=== PATIENT | male | born 1970 | race Caucasian/White ===

== ENCOUNTER 2024-10-26 08:02 | Inpatient (IN) | payer BC ==
[2024-10-26] MEDS ORDERED: SODIUM CHLORIDE 1,000 ML IV SCH (08:15)
[2024-10-26] MEDS ORDERED: LABETALOL HCL 20 MG/4 ML VIAL IVPUSH ONE (08:37)
[2024-10-26] MEDS: ONDANSETRON 4 MG/2 ML VIAL IVPUSH ONE ×2 (09:34→12:25)
[2024-10-26] MEDS: MECLIZINE HCL 25 MG TABLET (FP) PO ONE (09:34)
[2024-10-26] MEDS: ACETAMINOPHEN 1000 MG/100 ML BAG IVPB ONE ×2 (09:45→15:15)
[2024-10-26] MEDS ORDERED: ACETAMINOPHEN INJECTION 100 ML ONE (09:56)
[2024-10-26 10:58] LABS: ABSOLUTE IMMATURE GRANULOCYTES 0.03 x10^3/uL (0.0-0.031); BASOPHILS # 0.05 x10^3/uL (0.01-0.08); EOSINOPHIL % 0.9 % (0.8-7.0); EOSINOPHILS # 0.10 x10^3/uL (0.04-0.54); MCHC 34.4 g/dl (32.3-36.5); MEAN CELL VOLUME 94.8 fl (79.0-92.2); MEAN PLT VOLUME 9.8 fl (9.4-12.4); MONOCYTE # 0.72 x10^3/uL (0.30-0.82); MONOCYTE % 6.7 % (5.3-12.2); RDW 12.3 % (12.2-16.1)
[2024-10-26 11:05] LABS: INR 1.06 (0.83-1.09); PROTHROMBIN TIME (PATIENT) 11.7 SEC (9.7-13.0)
[2024-10-26 11:08] LABS: ACTIVATED PTT 24.2 SECONDS (25.2-36.5)
[2024-10-26 11:23] LABS: CO2 24.0 mmol/L (21-32)
[2024-10-26 11:25] LABS: GLUCOSE,RANDOM 161.0 mg/dL (74-106)
[2024-10-26 11:27] LABS: CREATININE 1.1 mg/dL (0.55-1.3); SGOT/AST 52.0 U/L (15-37); SGPT/ALT 98.0 U/L (13-61)
[2024-10-26 11:28] LABS: TOT PROT 7.4 g/dl (6.4-8.2)
[2024-10-26 11:30] LABS: LDL CHOLESTEROL (ONLY SJRH) 136.0 mg/dL (5-100)
[2024-10-26 11:31] LABS: ALK PHOS 69.0 U/L (45-117)
[2024-10-26] MEDS ORDERED: LABETALOL HCL 20 MG/4 ML VIAL ONE (11:32)
[2024-10-26] MEDS: LABETALOL HCL 20 MG/4 ML VIAL IVPUSH ONE (11:45)
[2024-10-26] MEDS ORDERED: LABETALOL HCL 20 MG/4 ML VIAL IVPUSH PRN (12:17)
[2024-10-26] MEDS ORDERED: ONDANSETRON 4 MG/2 ML VIAL ONE (12:20)
[2024-10-26] MEDS ORDERED: ASPIRIN 81 MG CHEWABLE TABLETS PO SCH (13:00)
[2024-10-26] MEDS: ONDANSETRON 4 MG/2 ML VIAL IVPUSH PRN (16:16)
[2024-10-26] MEDS: ACETAMINOPHEN 325 MG TABLET (FP) PO PRN (21:05)
[2024-10-26] MEDS ORDERED: MUPIROCIN 2% TOPICAL OINTMENT FOR DECOLONIZATION NS SCH (22:00)
[2024-10-26] MEDS: CHLORHEXIDINE GLUCONATE 4% CLEANSER FOR DECOLONIZATION TP SCH (22:34)
[2024-10-26] MEDS: MUPIROCIN 2% TOPICAL OINTMENT FOR DECOLONIZATION NS SCH (22:34)
[2024-10-26] MEDS: ATORVASTATIN CA 40 MG TABLET (FP) PO SCH (22:36)
[2024-10-27 07:33] LABS: ABSOLUTE IMMATURE GRANULOCYTES 0.07 x10^3/uL (0.0-0.031); BASOPHILS # 0.04 x10^3/uL (0.01-0.08); EOSINOPHIL % 0.9 % (0.8-7.0); EOSINOPHILS # 0.12 x10^3/uL (0.04-0.54); MCHC 34.3 g/dl (32.3-36.5); MEAN CELL VOLUME 96.0 fl (79.0-92.2); MEAN PLT VOLUME 10.2 fl (9.4-12.4); MONOCYTE # 1.28 x10^3/uL (0.30-0.82); MONOCYTE % 9.4 % (5.3-12.2); RDW 12.6 % (12.2-16.1)
[2024-10-27 08:18] LABS: CO2 26.0 mmol/L (21-32); GLUCOSE,RANDOM 105.0 mg/dL (74-106)
[2024-10-27 08:21] LABS: CREATININE 0.9 mg/dL (0.55-1.3); SGOT/AST 36.0 U/L (15-37); SGPT/ALT 84.0 U/L (13-61)
[2024-10-27 08:22] LABS: ALK PHOS 56.0 U/L (45-117); TOT PROT 6.6 g/dl (6.4-8.2)
[2024-10-27] MEDS: LOSARTAN POTASSIUM 50 MG TABLET PO SCH (09:04)
[2024-10-27] MEDS: ASPIRIN 81 MG CHEWABLE TABLETS PO SCH (09:04)
[2024-10-27] MEDS: MECLIZINE HCL 12.5 MG TABLET PO PRN (09:06)
[2024-10-28 06:33] LABS: ABSOLUTE IMMATURE GRANULOCYTES 0.04 x10^3/uL (0.0-0.031); BASOPHILS # 0.08 x10^3/uL (0.01-0.08); EOSINOPHIL % 2.6 % (0.8-7.0); EOSINOPHILS # 0.24 x10^3/uL (0.04-0.54); MCHC 33.4 g/dl (32.3-36.5); MEAN CELL VOLUME 97.1 fl (79.0-92.2); MEAN PLT VOLUME 9.8 fl (9.4-12.4); MONOCYTE # 0.96 x10^3/uL (0.30-0.82); MONOCYTE % 10.4 % (5.3-12.2); RDW 12.8 % (12.2-16.1)
[2024-10-28 07:06] LABS: CO2 27.0 mmol/L (21-32); GLUCOSE,RANDOM 100.0 mg/dL (74-106)
[2024-10-28 07:09] LABS: CREATININE 1.1 mg/dL (0.55-1.3); SGOT/AST 37.0 U/L (15-37); SGPT/ALT 79.0 U/L (13-61)
[2024-10-28 07:11] LABS: TOT PROT 6.8 g/dl (6.4-8.2)
[2024-10-28 07:12] LABS: ALK PHOS 63.0 U/L (45-117)
[2024-10-28] MEDS: ARTIFICIAL TEARS OPHTHALMIC DROPS OU PRN (09:21)
[2024-10-28] MEDS: LACTATED RINGERS SOLUTION 1,000 ML/1,000 ML INFUS.BAG IV STA (09:23)
[2024-10-28] MEDS: MECLIZINE HCL 12.5 MG TABLET PO SCH (14:57)
[2024-10-29 06:26] LABS: ABSOLUTE IMMATURE GRANULOCYTES 0.04 x10^3/uL (0.0-0.031); BASOPHILS # 0.08 x10^3/uL (0.01-0.08); EOSINOPHIL % 4.0 % (0.8-7.0); EOSINOPHILS # 0.38 x10^3/uL (0.04-0.54); MCHC 33.8 g/dl (32.3-36.5); MEAN CELL VOLUME 96.0 fl (79.0-92.2); MEAN PLT VOLUME 9.6 fl (9.4-12.4); MONOCYTE # 0.96 x10^3/uL (0.30-0.82); MONOCYTE % 10.2 % (5.3-12.2); RDW 12.7 % (12.2-16.1)
[2024-10-29 06:48] LABS: CO2 26.0 mmol/L (21-32); GLUCOSE,RANDOM 99.0 mg/dL (74-106)
[2024-10-29 06:51] LABS: CREATININE 1.1 mg/dL (0.55-1.3); SGOT/AST 54.0 U/L (15-37); SGPT/ALT 102.0 U/L (13-61)
[2024-10-29 06:53] LABS: TOT PROT 6.8 g/dl (6.4-8.2)
[2024-10-29 06:54] LABS: ALK PHOS 68.0 U/L (45-117)
[2024-10-29] MEDS ORDERED: LACTATED RINGERS SOLUTION 1,000 ML/1,000 ML INFUS.BAG IV SCH (11:45)
[2024-10-29] MEDS ORDERED: ONDANSETRON 4 MG/2 ML VIAL IVPUSH PRN (15:37)
[2024-10-29] MEDS ORDERED: ACETAMINOPHEN 325 MG TABLET (FP) PO PRN (15:37)
[2024-10-29] MEDS ORDERED: ARTIFICIAL TEARS OPHTHALMIC DROPS OU PRN (15:37)
[2024-10-29] MEDS: POLYETHYLENE GLYCOL (HEALTHYLAX) 3350 17 GM PACKET PO SCH (16:03)
[2024-10-29] MEDS: ATORVASTATIN CA 40 MG TABLET (FP) PO SCH (22:11)
[2024-10-29] MEDS: MECLIZINE HCL 12.5 MG TABLET PO SCH (22:11)
[2024-10-30 09:18] LABS: ABSOLUTE IMMATURE GRANULOCYTES 0.03 x10^3/uL (0.0-0.031); BASOPHILS # 0.08 x10^3/uL (0.01-0.08); EOSINOPHIL % 3.7 % (0.8-7.0); EOSINOPHILS # 0.33 x10^3/uL (0.04-0.54); MCHC 34.1 g/dl (32.3-36.5); MEAN CELL VOLUME 95.5 fl (79.0-92.2); MEAN PLT VOLUME 9.9 fl (9.4-12.4); MONOCYTE # 0.93 x10^3/uL (0.30-0.82); MONOCYTE % 10.4 % (5.3-12.2); RDW 12.6 % (12.2-16.1)
[2024-10-30] MEDS: LOSARTAN POTASSIUM 50 MG TABLET PO SCH (09:47)
[2024-10-30] MEDS: ASPIRIN 81 MG CHEWABLE TABLETS PO SCH (09:47)
[2024-10-30] MEDS: CLOPIDOGREL BISULFATE 75 MG TABLET (FP) PO SCH (09:47)
[2024-10-30 09:58] LABS: GLUCOSE,RANDOM 106.0 mg/dL (74-106); TOT PROT 6.9 g/dl (6.4-8.2)
[2024-10-30 09:59] LABS: ALK PHOS 64.0 U/L (45-117)
[2024-10-30 10:01] LABS: CO2 25.0 mmol/L (21-32); CREATININE 1.1 mg/dL (0.55-1.3); SGOT/AST 61.0 U/L (15-37); SGPT/ALT 109.0 U/L (13-61)
[2024-10-30] MEDS: ATORVASTATIN CA 40 MG TABLET (FP) PO SCH (21:56)
[2024-10-31 08:44] LABS: ABSOLUTE IMMATURE GRANULOCYTES 0.06 x10^3/uL (0.0-0.031); BASOPHILS # 0.07 x10^3/uL (0.01-0.08); EOSINOPHIL % 4.6 % (0.8-7.0); EOSINOPHILS # 0.41 x10^3/uL (0.04-0.54); MCHC 33.8 g/dl (32.3-36.5); MEAN CELL VOLUME 95.6 fl (79.0-92.2); MEAN PLT VOLUME 10.0 fl (9.4-12.4); MONOCYTE # 1.01 x10^3/uL (0.30-0.82); MONOCYTE % 11.3 % (5.3-12.2); RDW 12.6 % (12.2-16.1)
[2024-10-31 09:14] LABS: CO2 25.0 mmol/L (21-32); GLUCOSE,RANDOM 98.0 mg/dL (74-106)
[2024-10-31 09:17] LABS: SGOT/AST 58.0 U/L (15-37); SGPT/ALT 112.0 U/L (13-61)
[2024-10-31 09:19] LABS: CREATININE 1.2 mg/dL (0.55-1.3)
[2024-10-31 09:20] LABS: ALK PHOS 71.0 U/L (45-117)
[2024-10-31 09:21] LABS: TOT PROT 7.3 g/dl (6.4-8.2)
[2024-10-31 15:56] VITALS: BMI 32.5
[2024-10-31] MEDS: HEPARIN NA (PORCINE) 5,000 UNITS/ML 1ML VIAL SQ SCH (21:21)
[2024-10-31 21:47] VITALS: RESP 18
[2024-11-01 08:39] LABS: ABSOLUTE IMMATURE GRANULOCYTES 0.03 x10^3/uL (0.0-0.031); BASOPHILS # 0.07 x10^3/uL (0.01-0.08); EOSINOPHIL % 5.6 % (0.8-7.0); EOSINOPHILS # 0.44 x10^3/uL (0.04-0.54); MCHC 34.3 g/dl (32.3-36.5); MEAN CELL VOLUME 95.1 fl (79.0-92.2); MEAN PLT VOLUME 10.0 fl (9.4-12.4); MONOCYTE # 0.96 x10^3/uL (0.30-0.82); MONOCYTE % 12.2 % (5.3-12.2); RDW 12.5 % (12.2-16.1)
[2024-11-01 09:12] LABS: GLUCOSE,RANDOM 105.0 mg/dL (74-106)
[2024-11-01 09:13] LABS: CO2 23.0 mmol/L (21-32)
[2024-11-01 09:16] LABS: CREATININE 1.2 mg/dL (0.55-1.3); SGOT/AST 43.0 U/L (15-37); SGPT/ALT 98.0 U/L (13-61)
[2024-11-01 09:17] LABS: TOT PROT 7.2 g/dl (6.4-8.2)
[2024-11-01 09:18] LABS: ALK PHOS 82.0 U/L (45-117)
[2024-11-01] MEDS ORDERED: ACETAMINOPHEN 325 MG TABLET (FP) PO PRN (10:54)
[2024-11-01 14:33] VITALS: BP 148/99; PULSE 94; TEMP 97.8
[2024-11-01] MEDS: MAG HYDROX/AL HYDROX/SIMETH 30 ML UNIT-DOSE CUP PO ONE (14:51)
[2024-11-06 16:06] LABS: C-ANCA <1:20 titer (Neg:<1:20)
== END 2024-11-01 15:42 | disposition home health service (06) | DRG 66 ==
LOC: JER 08:02 → JERBED 10:10 → JICU 13:18 → J8W 10-29 15:18
PROVIDERS: ADMIT Internal Medicine Pulmonary Disease; ATTEND Nurse Practitioner Family
DX: I63.212 Cerebral infarction due to unspecified occlusion or stenosis of left vertebral artery (principal); K76.0 Fatty (change of) liver, not elsewhere classified; E78.5 Hyperlipidemia, unspecified; I10 Essential (primary) hypertension; E66.9 Obesity, unspecified; Z68.32 Body mass index [BMI] 32.0-32.9, adult; R26.9 Unspecified abnormalities of gait and mobility; R79.89 Other specified abnormal findings of blood chemistry; R20.2 Paresthesia of skin; R42 Dizziness and giddiness; H55.00 Unspecified nystagmus; R29.703 NIHSS score 3
CPT/HCPCS: 36415; 70450-TC; 70496-TC; 70498-TC; 70547-TC; 70551-TC; 70552-TC; 71260-TC; 74177-TC; 76705-TC; 80053; 80061; 81240; 81241; 82248; 82550; 82553; 82607; 82746; 82962; 83036; 83520; 83735; 84100; 84484; 85025; 85610; 85651; 85730; 86038; 86140; 86256; 86850; 86900; 86901; 87635; 93005; 93010; 93306-TC; 97116-GP; 97162-GP; 99291; J3101; Q9967

== ENCOUNTER 2024-11-25 02:04 | Observation (INO) | payer BC ==
[2024-11-25 02:12] VITALS: TEMP 97.3; BMI 32.1
[2024-11-25 02:39] LABS: ABSOLUTE IMMATURE GRANULOCYTES 0.02 x10^3/uL (0.0-0.031); BASOPHILS # 0.07 x10^3/uL (0.01-0.08); EOSINOPHIL % 4.6 % (0.8-7.0); EOSINOPHILS # 0.28 x10^3/uL (0.04-0.54); MCHC 34.4 g/dl (32.3-36.5); MEAN CELL VOLUME 93.1 fl (79.0-92.2); MEAN PLT VOLUME 10.2 fl (9.4-12.4); MONOCYTE # 0.73 x10^3/uL (0.30-0.82); MONOCYTE % 11.9 % (5.3-12.2); RDW 12.1 % (12.2-16.1)
[2024-11-25 02:51] LABS: INR 1.12 (0.83-1.09); PROTHROMBIN TIME (PATIENT) 12.2 SEC (9.7-13.0)
[2024-11-25 02:53] LABS: ACTIVATED PTT 28.1 SECONDS (25.2-36.5)
[2024-11-25 03:21] LABS: CO2 26.0 mmol/L (21-32)
[2024-11-25 03:22] LABS: GLUCOSE,RANDOM 117.0 mg/dL (74-106)
[2024-11-25 03:24] LABS: CREATININE 1.2 mg/dL (0.55-1.3); SGOT/AST 29.0 U/L (15-37); SGPT/ALT 51.0 U/L (13-61)
[2024-11-25 03:26] LABS: TOT PROT 6.9 g/dl (6.4-8.2)
[2024-11-25 03:27] LABS: LDL CHOLESTEROL (ONLY SJRH) 52.0 mg/dL (5-100)
[2024-11-25 03:28] LABS: ALK PHOS 91.0 U/L (45-117)
[2024-11-25] MEDS: SODIUM CHLORIDE 1,000 ML IV SCH (03:47)
[2024-11-25 03:49] LABS: HIV INTERPRETATION NEGATIVE (NEGATIVE)
[2024-11-25 03:50] LABS: HCV DIAGNOSTIC IN-HOUSE W/RFLX NON-REACTIVE (NONREACTIVE)
[2024-11-25] MEDS ORDERED: MECLIZINE HCL 12.5 MG TABLET PO PRN (05:46)
[2024-11-25] MEDS ORDERED: diazePAM CARPU-JECT 10 MG/2 ML DISP.SYRIN IVPUSH PRN (05:47)
[2024-11-25 06:47] LABS: CO2 26.0 mmol/L (21-32); GLUCOSE,RANDOM 114.0 mg/dL (74-106)
[2024-11-25 06:50] LABS: CREATININE 1.0 mg/dL (0.55-1.3)
[2024-11-25 07:24] LABS: MCHC 35.2 g/dl (32.3-36.5); MEAN CELL VOLUME 94.1 fl (79.0-92.2); MEAN PLT VOLUME 10.7 fl (9.4-12.4); RDW 12.0 % (12.2-16.1)
[2024-11-25] MEDS ORDERED: ASPIRIN 81 MG CHEWABLE TABLETS ONE (10:12)
[2024-11-25] MEDS ORDERED: ENOXAPARIN NA (PORCINE) 40 MG/0.4 ML DISP.SYRIN SQ ONE (10:12)
[2024-11-25] MEDS ORDERED: LOSARTAN POTASSIUM 50 MG TABLET ONE (10:12)
[2024-11-25] MEDS ORDERED: CLOPIDOGREL BISULFATE 75 MG TABLET (FP) ONE (10:12)
[2024-11-25] MEDS: ASPIRIN 81 MG CHEWABLE TABLETS PO SCH (10:16)
[2024-11-25] MEDS: LOSARTAN POTASSIUM 50 MG TABLET PO SCH (10:16)
[2024-11-25] MEDS: ENOXAPARIN NA (PORCINE) 40 MG/0.4 ML DISP.SYRIN SQ SCH (10:16)
[2024-11-25] MEDS: CLOPIDOGREL BISULFATE 75 MG TABLET (FP) PO SCH (10:17)
[2024-11-25 14:42] VITALS: BP 148/88; PULSE 91; RESP 16
[2024-11-25] MEDS ORDERED: ATORVASTATIN CA 80 MG TABLET (FP) PO SCH (22:00)
== END 2024-11-25 17:10 | disposition short-term general hospital (02) ==
LOC: JER 02:04 → JERBED 03:51
PROVIDERS: ADMIT Hospitalist; ATTEND Student in an Organized Health Care Education/Training Program
DX: I63.541 Cerebral infarction due to unspecified occlusion or stenosis of right cerebellar artery (principal); I63.212 Cerebral infarction due to unspecified occlusion or stenosis of left vertebral artery; I10 Essential (primary) hypertension; E78.5 Hyperlipidemia, unspecified; Z86.73 Personal history of transient ischemic attack (TIA), and cerebral infarction without residual deficits; Z87.891 Personal history of nicotine dependence; Z79.82 Long term (current) use of aspirin
CPT/HCPCS: 36415; 70450-TC; 70496-TC; 70498-TC; 70551-TC; 80048; 80053; 80061; 82550; 82553; 82962; 83036; 84484; 85025; 85027; 85610; 85730; 86803; 86850; 86900; 86901; 87389; 93005; 93010; 99285-25; G0378; Q9967

== ENCOUNTER 2024-12-01 12:17 | Emergency (ER) | payer BC ==
[2024-12-01 13:06] LABS: ABSOLUTE IMMATURE GRANULOCYTES 0.06 x10^3/uL (0.0-0.031); BASOPHILS # 0.11 x10^3/uL (0.01-0.08); EOSINOPHIL % 3.8 % (0.8-7.0); EOSINOPHILS # 0.45 x10^3/uL (0.04-0.54); MCHC 33.9 g/dl (32.3-36.5); MEAN CELL VOLUME 94.9 fl (79.0-92.2); MEAN PLT VOLUME 9.9 fl (9.4-12.4); MONOCYTE # 1.14 x10^3/uL (0.30-0.82); MONOCYTE % 9.5 % (5.3-12.2); RDW 12.5 % (12.2-16.1)
[2024-12-01 13:14] LABS: INR 1.33 (0.83-1.09); PROTHROMBIN TIME (PATIENT) 14.6 SEC (9.7-13.0)
[2024-12-01 13:17] LABS: ACTIVATED PTT 34.9 SECONDS (25.2-36.5)
[2024-12-01] MEDS ORDERED: PROPOFOL 20 ML ONE (13:22)
[2024-12-01 13:25] LABS: CO2 27 mmol/L (21-32)
[2024-12-01] MEDS ORDERED: PROPOFOL 1,000,000 MCG/100 ML VIAL ONE (13:25)
[2024-12-01 13:26] LABS: GLUCOSE,RANDOM 136 mg/dL (74-106)
[2024-12-01 13:28] LABS: SGPT/ALT 58 U/L (13-61)
[2024-12-01 13:29] LABS: CREATININE 1.1 mg/dL (0.55-1.3); SGOT/AST 33 U/L (15-37)
[2024-12-01 13:30] LABS: TOT PROT 7.6 g/dl (6.4-8.2)
[2024-12-01 13:31] LABS: LDL CHOLESTEROL (ONLY SJRH) 64 mg/dL (5-100)
[2024-12-01 13:32] LABS: ALK PHOS 104 U/L (45-117)
[2024-12-01] MEDS: PROPOFOL 1,000,000 MCG/100 ML VIAL IVPB SCH (13:33)
[2024-12-01] MEDS: SODIUM CHLORIDE 1,000 ML IV SCH (14:00)
[2024-12-01 14:05] VITALS: BMI 36.7
[2024-12-01 14:18] LABS: ARTERIAL BLD GAS O2 SATURATION 99.3 % (95-98); ARTERIAL BLOOD GAS BASE EXCESS -4.6 mmol/L (-2-2); ARTERIAL BLOOD GAS PCO2 42.80 mmHg (35-45); ARTERIAL BLOOD GAS PO2 206.7 mmHg (80-100); BG HCT 50.0 % (35.4-49); O2 CONTENT 2.39 % vol
[2024-12-01 14:47] LABS: URINE APPEARANCE CLEAR; URINE BILIRUBIN NEGATIVE (NEGATIVE); URINE COLOR YELLOW; URINE GLUCOSE (UA) NEGATIVE (NEGATIVE); URINE KETONE NEGATIVE (NEGATIVE); URINE LEUK ESTERASE NEGATIVE (NEGATIVE); URINE NITRITE NEGATIVE (NEGATIVE); URINE PROTEIN NEGATIVE (NEGATIVE); URINE UROBILINOGEN 0.2 mg/dL (0.2-1.0)
[2024-12-01] MEDS ORDERED: PIPERACILLIN/TAZOB 4.5 GM 4.5 GM/100 ML BAG IVPB ONE (14:54)
[2024-12-01] MEDS: PIPERACILLIN/TAZOB 4.5 GM 4.5 GM in DEXTROSE 5%-WATER 100 ML IVPB ONE (15:02)
[2024-12-01 15:13] VITALS: RESP 16
[2024-12-01 15:39] VITALS: TEMP 97.4
[2024-12-01 16:32] VITALS: BP 107/87; PULSE 89
[2024-12-01 17:01] LABS: COCAINE, UR NEGATIVE (NEGATIVE); METHADONE, UR NEGATIVE (NEGATIVE); OPIATES, URI NEGATIVE (NEGATIVE); URINE AMPHETAMINES NEGATIVE (NEGATIVE); URINE BARBITURATES NEGATIVE (NEGATIVE); URINE BENZODIAZEPINES NEGATIVE (NEGATIVE)
[2024-12-01 17:02] LABS: PHENCYCLIDINE,URINE NEGATIVE (NEGATIVE)
== END 2024-12-01 17:40 | disposition short-term general hospital (02) ==
LOC: JER 12:17
PROC: 3E03329 Introduction of Other Anti-infective into Peripheral Vein, Percutaneous Approach (ICD-10-PCS; principal; 2024-12-01)
PROC: 3E033GC Introduction of Other Therapeutic Substance into Peripheral Vein, Percutaneous Approach (ICD-10-PCS; 2024-12-01)
PROC: 3E033GC Introduction of Other Therapeutic Substance into Peripheral Vein, Percutaneous Approach (ICD-10-PCS; 2024-12-01)
DX: R46.4 Slowness and poor responsiveness (principal); R29.810 Facial weakness
CPT/HCPCS: 36415; 36600; 70450-TC; 70496-TC; 70498-TC; 71045-TC-FY; 71250-TC; 80053; 80061; 80307; 81003; 82550; 82553; 82803; 83036; 84484; 85025; 85610; 85730; 86850; 86900; 86901; 93005; 93010; 99285-25